=== PATIENT | female | born 2000 | race Caucasian/White ===

== ENCOUNTER → 2023-07-30 09:22 | Outpatient (BNVA) | payer BC, SELFPAY | PROVIDERS: Visit Provider Nurse Practitioner Family | DX: R00.0 Tachycardia, unspecified (principal); R07.9 Chest pain, unspecified; Z91.09 Other allergy status, other than to drugs and biological substances | CPT/HCPCS: 80053; 84443; 85025 ==

== ENCOUNTER 2023-12-22 13:49 | Outpatient (CLI) | payer BC, SELFPAY ==
--- NOTE | 2023-12-22 14:15 | USCV_ITS ---
Freda Marquez Age: 23 Gender: F : 2000 Exam Date: 12/22/2023 14:03 Ordering Phys: Tigist Christianson MD ([email or web address]) Technologist: [email or web address] [place]am [place] [facility] [place]ication: TRACKYCARDIA BP: 130 / 60 HR: 69 Rhythm: Sinus Technical Quality: Adequate MEASUREMENTS (Male / Female) Normal Values 2D ECHO LV Diastolic Diameter PLAX 3.9 cm 4.2 - 5.9 / 3.9 - 5.3 cm IVS Diastolic Thickness 0.9 cm 0.6 - 1.0 / 0.6 - 0.9 cm IVS Systolic Thickness 1.3 cm LVPW Diastolic Thickness 1.5 cm 0.6 - 1.0 / 0.6 - 0.9 cm LVPW Systolic Thickness 1.9 cm LVOT Diameter 2.0 cm LV Ejection Fraction 2D Teich 58.9 % LV Ejection Fraction MOD 2C 63.5 % LV Ejection Fraction 2C AL 63.7 % LA Diameter 2.2 cm RA Systolic Volume 4C AL 16.5 ml RA Systolic Volume 4C MOD 15.6 ml Aorta at Sinotubular Diameter 1.8 cm IVC Diameter 1.0 cm M-MODE LA Ao Ratio MM 0.5 AV Cusp Separation MM 1.6 cm DOPPLER AV Peak Velocity 122.0 cm/s LVOT Peak Velocity 85.0 cm/s AV Area Cont Eq vti 2.4 cm squared AV Area Cont Eq pk 2.2 cm squared MV Peak Velocity 124.0 cm/s MV Area PHT 3.4 cm squared Mitral E to A Ratio 3.0 TR Peak Velocity 192.0 cm/s TR Peak Gradient 14.7 mmHg TR Mean Velocity 161.0 cm/s TR Mean Gradient 11.0 mmHg TR Velocity Time Integral 51.8 cm TV Peak E Velocity 55.0 cm/s Right Atrial Pressure 3.0 mmHg Pulmonary Artery Systolic Pressu 17.7 mmHg PV Peak Velocity 96.0 cm/s RV Ejection Time 0.2 s FINDINGS Left Ventricle Normal left ventricular size, systolic function and wall thickness, with no regional wall motion abnormalities. Normal left ventricular wall thickness. Normal diastolic filling pattern. LV ejection fraction of 64% Right Ventricle The right ventricle is normal in size and function. Right Atrium The right atrium is normal in size. Left Atrium The left atrium is normal in size. Mitral Valve Structurally normal mitral valve without significant stenosis or prolapse. There is no mitral regurgitation. Aortic Valve Structurally normal aortic valve without significant sclerosis or stenosis. There is no aortic regurgitation. Tricuspid Valve Structurally normal tricuspid valve without significant stenosis or regurgitation. Pulmonary artery systolic pressure is normal. Pulmonic Valve Structurally normal pulmonic valve without significant stenosis. There is no pulmonic regurgitation. Pericardium Normal pericardium without effusion. Aorta Normal ascending aorta dimension. IVC The inferior vena cava appears normal. CONCLUSIONS Normal left ventricular size, systolic function and wall thickness, with no regional wall motion abnormalities. Normal left ventricular wall thickness. Normal diastolic filling pattern. LV ejection fraction of 64%. Normal cardiac chamber sizes. No significant valvular abnormalities. No evidence of intracardiac shunt by color-flow Doppler examination. There are no intracardiac masses. There is no pericardial effusion. No similar previous studies are available for comparison Dr Tigist Christianson MD FACC (Electronically Signed) Final Date: 25 December 2023 10:08 S
== END 2023-12-22 13:50 | disposition home or self-care (01) ==
LOC: RAD 13:49
PROVIDERS: PCP Nurse Practitioner Family; Visit Provider Internal Medicine Cardiovascular Disease
DX: R06.09 Other forms of dyspnea (principal); R07.9 Chest pain, unspecified
CPT/HCPCS: 93306